=== PATIENT | female | born 1960 | race Hispanic/Latino ===

== ENCOUNTER → 2016-06-21 | Outpatient (CLI) | payer OTHER ==
[~2016-06-21] MED LIST: CIPR500T3 PO; CYMB60CA3 PO; E-Z PAQUE 60% w/v SUSP 355ML BOTTLE As Ordered ONE; E-Z-GAS II EFFERVESCENT PACKET (SODIUM BICARB./CITRIC ACID/SIMETHICONE) As Ordered ONE; E-Z-HD 98% w/w 340GM SUSP BTL As Ordered ONE; ESTR125TA PO; GABA-283 PO; IBUP60TA PO; KEFL500C7 PO; LORA-376 PO; MOTR200T44 PO; NEUR300C PO; OMEP10CASR PO; PERC5TAB6 PO; PHEN200T14 PO; PROA1AER INH; TIZA4CAP3 PO; TOPA50TA7 PO; TRAM50TA2 PO; ZONI50CA3 PO
--- NOTE | 2016-06-21 17:05 | REP ---
UPPER GI, AIR CONTRAST AND SMALL BOWEL FOLLOW THROUGH: The procedure was performed under the direct supervision of Dr. Hill. The images were reviewed with Dr. Hill. The hazmat technician film shows no organomegaly or pathological masses. The intestinal gas pattern is nonspecific. There are surgical clips noted in the right upper quadrant. Liquid barium and gas-producing granules were given in the erect position as well as liquid barium in the prone oblique positions in order to perform a double contrast upper GI examination. The oral and pharyngeal stages of deglutition are unremarkable. Esophageal transport is prompt and efficient and there is no esophagitis, stricture, mucosal ring or hiatal hernia. There is mild gastroesophageal reflux demonstrated to below the level of the darrell. In the outer margin of the posterior antrum, superior aspect there is a shallow outpouching/defect with irregular folds and contour. Cannot exclude an acute versus old ulcer. The remainder of the stomach is unremarkable. The duodenal braswell are normally outlined. The mucosal folds are smooth and regular. There is no duodenitis, pancreatitis, peptic ulcer disease or neoplasm. The visualized portion of the proximal small bowel appears normal in course and caliber. The barium column was followed through the small bowel to the level of the terminal ileum. Small bowel transit time is approximately 15 minutes. During fluoroscopy, gentle palpation shows all loops are freely movable and pliable. There are no fixed or angulated loops. The small bowel mucosal pattern is normal in course and caliber. There is no transition to suggest a partial small bowel obstruction. Spot filming of the terminal ileum shows it to be unremarkable. IMPRESSION: 1. There is mild gastroesophageal reflux demonstrated to below the level of the darrell. 2. In the outer margin of the posterior antrum, superior aspect there is a shallow outpouching/defect with irregular folds and contour. Cannot exclude acute versus old ulcer. 2 minutes and 33 seconds of fluoroscopy time was utilized for this procedure. Reviewed by ANA Ramachandran 06/22/2016 09:34 AEdited and Signed by Javi Hill MD 06/22/2016 04:39 P
== END ==
LOC: M RAD 08:53
PROVIDERS: ATTEND Surgery
DX: K21.9 Gastro-esophageal reflux disease without esophagitis (principal); K58.0 Irritable bowel syndrome with diarrhea

== ENCOUNTER → 2016-06-28 | Outpatient (CLI) | payer OTHER ==
[~2016-06-28] VITALS: Ht 154.9 cm; Wt 93.9 kg
[~2016-06-28] MED LIST changes: -E-Z PAQUE 60% w/v SUSP 355ML BOTTLE As Ordered ONE; -E-Z-GAS II EFFERVESCENT PACKET (SODIUM BICARB./CITRIC ACID/SIMETHICONE) As Ordered ONE; -E-Z-HD 98% w/w 340GM SUSP BTL As Ordered ONE; +LIDOCAINE 2% INJ 100 MG/5 ML SDV (FOR ANES.) As Ordered ONE; +NS 1,000 ML IV SCH; +PROPOFOL 200 MG/20 ML VIAL As Ordered ONE
--- NOTE | 2016-06-28 11:38 | ROOR ---
Patient Name: Blanca Steele Procedure Date: 06/28/2016 11:02 AM Date of : 1960 Age: 55 Room: [facility] Gender: Female Note Status: Finalized Procedure: Upper GI endoscopy Indications: Epigastric abdominal pain, Nausea with vomiting Providers: Barrera Martin Jr, MD Referring MD: Azul Will DO Requesting Provider: Medicines: Propofol per Anesthesia Complications: No immediate complications. Procedure: Pre-Anesthesia Assessment: - Prior to the procedure, a History and Physical was performed, and patient medications and allergies were reviewed. The patient is competent. The risks and benefits of the procedure and the sedation options and risks were discussed with the patient. All questions were answered and informed consent was obtained. Patient identification and proposed procedure were verified by the physician and the nurse in the pre-procedure area and in the procedure room. Mental Status Examination: alert and oriented. Airway Examination: normal oropharyngeal airway and neck mobility. Respiratory Examination: clear to auscultation. CV Examination: normal. ASA Grade Assessment: II - A patient with mild systemic disease. After reviewing the risks and benefits, the patient was deemed in satisfactory condition to undergo the procedure. The anesthesia plan was to use moderate sedation / analgesia (conscious sedation). Immediately prior to administration of medications, the patient was re-assessed for adequacy to receive sedatives. The heart rate, respiratory rate, oxygen saturations, blood pressure, adequacy of pulmonary ventilation, and response to care were monitored throughout the procedure. The physical status of the patient was re-assessed after the procedure. The Endoscope was introduced through the mouth, and advanced to the second part of duodenum. The upper GI endoscopy was accomplished without difficulty. The patient tolerated the procedure well. Findings: The upper third of the esophagus, middle third of the esophagus and lower third of the esophagus were normal. A small hiatal hernia was present. Diffuse moderate inflammation characterized by congestion (edema), erythema, friability and granularity was found in the gastric body, in the gastric antrum, in the prepyloric region of the stomach and at the pylorus. Biopsies were taken with a cold forceps for histology. The duodenal bulb, first portion of the duodenum and second portion of the duodenum were normal. Impression: - Normal upper third of esophagus, middle third of esophagus and lower third of esophagus. - Small hiatal hernia. - Bile gastritis. Biopsied. - Normal duodenal bulb, first portion of the duodenum and second portion of the duodenum. Recommendation: - Discharge patient to home (ambulatory). - Return to my office in 2 weeks. Barrera Martin MD Barrera Martin Jr, MD 06/28/2016 11:38:27 AM This report has been signed electronically. Number of Addenda: 0 Note Initiated On: 06/28/2016 11:02 AM Estimated Blood Loss: Estimated blood loss: none.
[2016-06-28 11:56] VITALS: BP 130/81
== END | disposition home or self-care (01) ==
LOC: M OPP 10:12
PROVIDERS: ATTEND Surgery
DX: K29.60 Other gastritis without bleeding (principal); R10.13 Epigastric pain; R11.2 Nausea with vomiting, unspecified; R12 Heartburn; K44.9 Diaphragmatic hernia without obstruction or gangrene; K58.9 Irritable bowel syndrome, unspecified; M19.90 Unspecified osteoarthritis, unspecified site; F41.9 Anxiety disorder, unspecified; F32.9 Major depressive disorder, single episode, unspecified; G43.909 Migraine, unspecified, not intractable, without status migrainosus; G62.9 Polyneuropathy, unspecified; G47.30 Sleep apnea, unspecified; R06.83 Snoring; M51.9 Unspecified thoracic, thoracolumbar and lumbosacral intervertebral disc disorder; M54.30 Sciatica, unspecified side; M48.00 Spinal stenosis, site unspecified; Z80.3 Family history of malignant neoplasm of breast; Z80.7 Family history of other malignant neoplasms of lymphoid, hematopoietic and related tissues; Z80.8 Family history of malignant neoplasm of other organs or systems; Z80.0 Family history of malignant neoplasm of digestive organs; Z87.891 Personal history of nicotine dependence; Z79.890 Hormone replacement therapy; Z79.899 Other long term (current) drug therapy

== ENCOUNTER → 2016-11-14 | Outpatient (REF) | payer OTHER ==
[~2016-11-14] MED LIST changes: +AUGM875T28 PO; +BENA25CA4 PO; +ESTR625TA PO; +ESTR62CR PV; +KEFL500C17 PO; -KEFL500C7 PO; +LIDO1PAD TOP; -LIDOCAINE 2% INJ 100 MG/5 ML SDV (FOR ANES.) As Ordered ONE; -LORA-376 PO; +LORA0.5T11 PO; -NS 1,000 ML IV SCH; +ONDA4TAB5 PO; +PANT40TA2 PO; +PERC5TAB12 PO; -PERC5TAB6 PO; +PHEN-501 PO; -PHEN200T14 PO; -PROA1AER INH; +PROAAER10 INH; -PROPOFOL 200 MG/20 ML VIAL As Ordered ONE; +REGL10TA6 PO; +SUCR1TA PO; -TOPA50TA7 PO; +TOPA50TA8 PO; +UNIS25TA2 PO; +VITA1CAP40; +[UNRECOGNIZED DRUG - CODE] PO
== END ==
LOC: M LAB REF 16:45
PROVIDERS: ATTEND Obstetrics & Gynecology
DX: R39.89 Other symptoms and signs involving the genitourinary system (principal)

== ENCOUNTER → 2016-12-12 | Outpatient (CLI) | payer OTHER ==
[2016-12-12 16:12] LABS: BASO % 0.3 % (0.0-1.0); EOS # 0.1 K/mm3 (0.0-0.50); EOS % 1.6 % (0.0-3.0); LARGE UNSTAINED CELL # 0.1 K/mm3 (0.0-0.4); LARGE UNSTAINED CELL % 1.2 % (0.0-4.0); LYMPH # 3.1 K/mm3 (1.5-4.5); LYMPH % 36.2 % (24.0-44.0); MEAN CORPUSCULAR HEMOGLOBIN 29.5 pg (27.0-33.0); MEAN CORPUSCULAR VOLUME 84.1 fl (80.0-96.0); MONO # 0.3 K/mm3 (0.0-0.8); NEUTROPHILS # 4.7 K/mm3 (1.8-7.7); NEUTROPHILS % 56.6 % (36.0-66.0); PLATELET COUNT, AUTOMATED 270 k/mm3 (150-450); RED CELL DISTRIBUTION WIDTH 12.8 % (11.5-14.5); WHITE BLOOD COUNT 8.3 K/mm3 (4.0-10.0)
[2016-12-12 16:39] LABS: ALBUMIN 4.3 GM/DL (3.2-5.2); ALKALINE PHOSPHATASE 114 U/L (45-117); ALT/SGPT 31 U/L (12-78); ANION GAP 7 MEQ/L (8-16); AST/SGOT 29 U/L (15-37); BILIRUBIN,TOTAL 0.4 MG/DL (0.2-1.0); BLOOD UREA NITROGEN 9 MG/DL (7-18); CALCIUM LEVEL 9.9 MG/DL (8.5-10.1); CARBON DIOXIDE LEVEL 24 MEQ/L (21-32); CHLORIDE LEVEL 111 MEQ/L (98-107); CREATININE FOR GFR 0.79 MG/DL (0.55-1.02); GLOMERULAR FILTRATION RATE > 60.0 (>51); GLUCOSE, FASTING 73 MG/DL (70-105); POTASSIUM SERUM 4.2 MEQ/L (3.5-5.1); SODIUM LEVEL 142 MEQ/L (136-145); TOTAL PROTEIN 8.2 GM/DL (6.4-8.2)
== END ==
LOC: M LAB 14:55
PROVIDERS: ATTEND Internal Medicine Gastroenterology
DX: R19.7 Diarrhea, unspecified (principal)

== ENCOUNTER → 2017-01-02 | Outpatient (REF) | payer OTHER | LOC: M LAB REF 06:30 | PROVIDERS: ATTEND Internal Medicine Gastroenterology | DX: R19.7 Diarrhea, unspecified (principal) ==

== ENCOUNTER 2017-01-09 14:21 | Emergency (ER) | payer OTHER ==
[~2017-01-09] VITALS: Ht 154.9 cm; Wt 96.8 kg
[~2017-01-09 14:21] MED LIST changes: -AUGM875T28 PO; -BENA25CA4 PO; -ESTR625TA PO; -ESTR62CR PV; -LIDO1PAD TOP; -ONDA4TAB5 PO; -PANT40TA2 PO; -REGL10TA6 PO; -SUCR1TA PO; -UNIS25TA2 PO; -VITA1CAP40; -[UNRECOGNIZED DRUG - CODE] PO
[2017-01-09] MEDS ORDERED: VITA1CAP40 (14:37)
[2017-01-09] MEDS ORDERED: [UNRECOGNIZED DRUG - CODE] PO (14:37)
[2017-01-09] MEDS ORDERED: SUCR1TA PO (14:37)
[2017-01-09] MEDS ORDERED: GASTROGRAFIN SOLUTION 30ML (Q9963) As Ordered ONE (15:19)
[2017-01-09] MEDS ORDERED: METOCLOPRAMIDE INJ 10MG/2ML VIAL (J2765) IV ONE (16:00)
[2017-01-09] MEDS ORDERED: KETOROLAC 30 MG/ML VIAL (J1885) IV ONE (16:00)
[2017-01-09] MEDS ORDERED: GASTROGRAFIN SOLUTION 30ML PO ONE (16:20)
[2017-01-09 16:21] LABS: BASO % 0.4 % (0.0-1.0); EOS # 0.1 K/mm3 (0.0-0.50); EOS % 0.9 % (0.0-3.0); LARGE UNSTAINED CELL # 0.1 K/mm3 (0.0-0.4); LARGE UNSTAINED CELL % 0.9 % (0.0-4.0); LYMPH # 2.1 K/mm3 (1.5-4.5); LYMPH % 22.3 % (24.0-44.0); MEAN CORPUSCULAR HEMOGLOBIN 29.2 pg (27.0-33.0); MEAN CORPUSCULAR HGB CONC 34.2 g/dl (32.0-36.5); MEAN CORPUSCULAR VOLUME 85.2 fl (80.0-96.0); MONO # 0.3 K/mm3 (0.0-0.8); MONO % 3.4 % (0.0-5.0); NEUTROPHILS # 6.4 K/mm3 (1.8-7.7); PLATELET COUNT, AUTOMATED 278 k/mm3 (150-450); RED CELL DISTRIBUTION WIDTH 13.2 % (11.5-14.5); WHITE BLOOD COUNT 8.9 K/mm3 (4.0-10.0)
[2017-01-09 16:32] LABS: ALBUMIN 4.1 GM/DL (3.2-5.2); ALBUMIN/GLOBULIN RATIO 1.08 (1.00-1.93); ALKALINE PHOSPHATASE 131 U/L (45-117); ALT/SGPT 28 U/L (12-78); AMYLASE 57 U/L (25-115); ANION GAP 10 MEQ/L (8-16); AST/SGOT 24 U/L (15-37); BILIRUBIN,DIRECT 0.2 MG/DL (0.0-0.2); BILIRUBIN,TOTAL 0.4 MG/DL (0.2-1.0); BLOOD UREA NITROGEN 8 MG/DL (7-18); CALCIUM LEVEL 9.9 MG/DL (8.5-10.1); CARBON DIOXIDE LEVEL 23 MEQ/L (21-32); CHLORIDE LEVEL 111 MEQ/L (98-107); CREATININE FOR GFR 0.69 MG/DL (0.55-1.02); GLOMERULAR FILTRATION RATE > 60.0 (>51); GLUCOSE, FASTING 78 MG/DL (70-105); POTASSIUM SERUM 3.8 MEQ/L (3.5-5.1); SODIUM LEVEL 144 MEQ/L (136-145); TOTAL PROTEIN 7.9 GM/DL (6.4-8.2)
[2017-01-09] MEDS ORDERED: GASTROGRAFIN SOLUTION 30ML (Q9963) PO ONE (16:50)
--- NOTE | 2017-01-09 18:41 | REP ---
CT of the abdomen pelvis without IV contrast, but with bowel contrast: Comparison is 05/05/2015. The visualized lung mesa are unremarkable. There is a 1.2 use centimeter cyst in the left lobe of the liver posteriorly, unchanged. The unenhanced hepatic parenchyma is otherwise homogeneous and unremarkable. There are surgical clips in the gallbladder fossa. Pancreas and spleen are normal size and unremarkable. The adrenals are unremarkable. The unenhanced kidneys are unremarkable. The abdominal aorta is unremarkable. There is no bowel distension. No ascites. Pelvis: The appendix is surgically absent. There is a hysterectomy. There is no diverticulosis. The bladder is incompletely distended but otherwise unremarkable. There is wall thickening of the rectosigmoid colon, nonspecific, artifact from non distension versus colitis. Impression: Cholecystectomy, appendectomy and hysterectomy. No ascites, adenopathy or mass. Nonspecific wall thickening of the rectosigmoid colon, artifact from under distension versus colitis. Stable hepatic cyst. Otherwise, negative CT of the abdomen and pelvis. Signed by Rome Velasquez MD 01/09/2017 06:33 P
[2017-01-09] MEDS ORDERED: AUGM875T28 PO (18:42)
[2017-01-09] MEDS ORDERED: REGL10TA6 PO (18:42)
[2017-01-09] MEDS ORDERED: PERCOCET 5MG/325MG TAB PO ONE (18:45)
[2017-01-09 18:53] VITALS: BP 147/92
--- NOTE | 2017-01-10 09:51 | ED PDOC ---
Post-Departure Follow-Up radiology report faxed to Albina Greene MD Jan 10, 2017 09:51
[2017-03-05] MEDS ORDERED: UNIS25TA2 PO (14:51)
[2017-03-05] MEDS ORDERED: LIDO1PAD TOP (14:51)
[2017-03-05] MEDS ORDERED: PANT40TA2 PO (14:51)
[2017-03-05] MEDS ORDERED: ONDA4TAB5 PO (14:51)
[2017-03-05] MEDS ORDERED: BENA25CA4 PO (14:51)
[2017-03-05] MEDS ORDERED: ESTR625TA PO (14:51)
[2017-03-05] MEDS ORDERED: ESTR62CR PV (14:51)
== END 2017-01-09 19:12 | disposition home or self-care (01) ==
LOC: M ED 14:21
DX: K52.9 Noninfective gastroenteritis and colitis, unspecified (principal); R10.12 Left upper quadrant pain; R10.32 Left lower quadrant pain; J45.909 Unspecified asthma, uncomplicated; F41.9 Anxiety disorder, unspecified; F32.9 Major depressive disorder, single episode, unspecified; G43.909 Migraine, unspecified, not intractable, without status migrainosus; Z79.899 Other long term (current) drug therapy
CPT/HCPCS: 74176; 80048; 80076; 82150; 83690; 85025; 86140; 96374; 96375; 99283; J1885; J2765; Q9963

== ENCOUNTER 2017-03-12 07:57 | Day surgery (SDC) | payer OTHER ==
[~2017-03-12] VITALS: Ht 154.9 cm; Wt 90.6 kg
[~2017-03-12 07:57] MED LIST changes: +AUGM875T28 PO; +BENA25CA4 PO; +ESTR625TA PO; +ESTR62CR PV; +LIDO1PAD TOP; +ONDA4TAB5 PO; +PANT40TA2 PO; +REGL10TA6 PO; +SUCR1TA PO; +UNIS25TA2 PO; +VITA1CAP40; +[UNRECOGNIZED DRUG - CODE] PO
[2017-03-12] MEDS ORDERED: NS 1,000 ML IV ONE (09:00)
[2017-03-12] MEDS ORDERED: LIDOCAINE 2% INJ 100 MG/5 ML SDV (FOR ANES.) As Ordered ONE (09:44)
[2017-03-12] MEDS ORDERED: PROPOFOL 200 MG/20 ML VIAL As Ordered ONE (09:44)
--- NOTE | 2017-03-12 10:34 | ROOR ---
Patient Name: Blanca Steele Procedure Date: 03/12/2017 10:02 AM Date of : 1960 Age: 56 Room: [facility] Gender: Female Note Status: Finalized Procedure: Colonoscopy Indications: Chronic diarrhea, Clinically significant diarrhea of unexplained origin Providers: Rambo Alcazar MD Referring MD: Azul Will DO Requesting Provider: Medicines: Monitored Anesthesia Care Complications: No immediate complications. Procedure: Pre-Anesthesia Assessment: - Prior to the procedure, a History and Physical was performed, and patient medications and allergies were reviewed. The patient is competent. The risks and benefits of the procedure and the sedation options and risks were discussed with the patient. All questions were answered and informed consent was obtained. Patient identification and proposed procedure were verified by the physician, the nurse and the director of residential services in the procedure room. Mental Status Examination: alert and oriented. Airway Examination: normal oropharyngeal airway and neck mobility. Respiratory Examination: clear to auscultation. CV Examination: normal. Prophylactic Antibiotics: The patient does not require prophylactic antibiotics. Prior Anticoagulants: The patient has taken no previous anticoagulant or antiplatelet agents. ASA Grade Assessment: III - A patient with severe systemic disease. After reviewing the risks and benefits, the patient was deemed in satisfactory condition to undergo the procedure. The anesthesia plan was to use monitored anesthesia care (MAC). Immediately prior to administration of medications, the patient was re-assessed for adequacy to receive sedatives. The heart rate, respiratory rate, oxygen saturations, blood pressure, adequacy of pulmonary ventilation, and response to care were monitored throughout the procedure. The physical status of the patient was re-assessed after the procedure. The Colonoscope was introduced through the anus and advanced to the terminal ileum, with identification of the appendiceal orifice and IC valve. The colonoscopy was performed without difficulty. The patient tolerated the procedure well. The quality of the bowel preparation was good. The terminal ileum, ileocecal valve, appendiceal orifice, and rectum were photographed. Scope insertion time was 3 minutes. Scope withdrawal time was 8 minutes. The total duration of the procedure was 11 minutes. Findings: Hemorrhoids were found on perianal exam. The terminal ileum appeared normal. Biopsies were taken with a cold forceps for histology. Verification of patient identification for the specimen was done by the physician and nurse using the patient's name, date and medical record number. Estimated blood loss was minimal. Normal mucosa was found from rectum to cecum. Biopsies for histology were taken with a cold forceps from the right colon, left colon, transverse colon and rectum for evaluation of microscopic colitis. External hemorrhoids were found during retroflexion. The hemorrhoids were large. Impression: - Hemorrhoids found on perianal exam. - The examined portion of the ileum was normal. Biopsied. - Normal mucosa from rectum to cecum. Biopsied. - External hemorrhoids. Recommendation: - Patient has a contact number available for emergencies. The signs and symptoms of potential delayed complications were discussed with the patient. Return to normal activities tomorrow. Written discharge instructions were provided to the patient. - High fiber diet. - Continue present medications. - Preparation H ointment: Apply externally daily for 7 days. - Await pathology results. - Repeat colonoscopy in 10 years for screening purposes. - Return to GI clinic as previously scheduled on 03/27/2017 at 3:15 PM. - Return to primary care physician. Rambo Alcazar MD Rambo Alcazar MD 03/12/2017 10:33:41 AM This report has been signed electronically. Number of Addenda: 0 Note Initiated On: 03/12/2017 10:02 AM Estimated Blood Loss: Estimated blood loss was minimal.
[2017-03-12 11:00] VITALS: BP 119/85
== END 2017-03-12 11:04 | disposition home or self-care (01) ==
LOC: M OPP 07:57
PROVIDERS: ATTEND Internal Medicine Gastroenterology
DX: R19.7 Diarrhea, unspecified (principal); K64.4 Residual hemorrhoidal skin tags; K58.9 Irritable bowel syndrome, unspecified; I10 Essential (primary) hypertension; F41.9 Anxiety disorder, unspecified; M19.90 Unspecified osteoarthritis, unspecified site; M54.30 Sciatica, unspecified side; M48.00 Spinal stenosis, site unspecified; M51.9 Unspecified thoracic, thoracolumbar and lumbosacral intervertebral disc disorder; L08.9 Local infection of the skin and subcutaneous tissue, unspecified; F32.9 Major depressive disorder, single episode, unspecified; Z87.828 Personal history of other (healed) physical injury and trauma; G43.909 Migraine, unspecified, not intractable, without status migrainosus; G62.9 Polyneuropathy, unspecified; J45.909 Unspecified asthma, uncomplicated; G47.8 Other sleep disorders; G47.30 Sleep apnea, unspecified; R06.83 Snoring; Z80.0 Family history of malignant neoplasm of digestive organs; Z80.3 Family history of malignant neoplasm of breast; Z79.899 Other long term (current) drug therapy

== ENCOUNTER → 2017-08-19 | Outpatient (CLI) | payer OTHER | LOC: M RAD 15:37 | DX: M51.17 Intervertebral disc disorders with radiculopathy, lumbosacral region (principal); M51.16 Intervertebral disc disorders with radiculopathy, lumbar region; M48.061 Spinal stenosis, lumbar region without neurogenic claudication ==

== ENCOUNTER → 2017-12-06 | Outpatient (CLI) | payer OTHER ==
[2017-12-06 13:24] LABS: HEMOGLOBIN 13.9 g/dl (12.0-15.5)
[2017-12-06 13:55] LABS: ANION GAP 6 MEQ/L (8-16); BLOOD UREA NITROGEN 12 MG/DL (7-18); CALCIUM LEVEL 9.8 MG/DL (8.5-10.1); CARBON DIOXIDE LEVEL 28 MEQ/L (21-32); CHLORIDE LEVEL 108 MEQ/L (98-107); CREATININE FOR GFR 0.78 MG/DL (0.55-1.30); GLOMERULAR FILTRATION RATE > 60.0 (>51); GLUCOSE, FASTING 72 MG/DL (70-100); POTASSIUM SERUM 4.2 MEQ/L (3.5-5.1); SODIUM LEVEL 142 MEQ/L (136-145)
== END ==
LOC: M LAB 12:36
DX: Z01.818 Encounter for other preprocedural examination (principal); M47.896 Other spondylosis, lumbar region; J45.909 Unspecified asthma, uncomplicated
CPT/HCPCS: 71046

== ENCOUNTER 2018-03-31 06:18 | Inpatient (IN) | payer OTHER ==
[~2018-03-31 06:18] MED LIST changes: -AUGM875T28 PO; -BENA25CA4 PO; -CIPR500T3 PO; -CYMB60CA3 PO; -ESTR125TA PO; -ESTR625TA PO; -ESTR62CR PV; -GABA-283 PO; -IBUP60TA PO; -KEFL500C17 PO; -LIDO1PAD TOP; +LIDOCAINE 1% MDV 20ML VIAL SQ; -LORA0.5T11 PO; -MOTR200T44 PO; -NEUR300C PO; -OMEP10CASR PO; -ONDA4TAB5 PO; -PANT40TA2 PO; -PERC5TAB12 PO; -PHEN-501 PO; -PROAAER10 INH; -REGL10TA6 PO; -SUCR1TA PO; -TIZA4CAP3 PO; -TOPA50TA8 PO; -TRAM50TA2 PO; -UNIS25TA2 PO; -VITA1CAP40; -ZONI50CA3 PO; -[UNRECOGNIZED DRUG - CODE] PO
[2018-03-31] MEDS ORDERED: LR 1,000 ML IV (06:30)
[2018-03-31] MEDS: GABAPENTIN 300 MG CAP PO (06:45)
[2018-03-31] MEDS: CelecoXIB (CeleBREX) 100 MG CAP PO (07:09)
[2018-03-31] MEDS: PERCOCET 5MG/325MG TAB PO ×3 (07:10→20:53)
[2018-03-31] MEDS ORDERED: LIDOCAINE 2% INJ 100 MG/5 ML SDV (FOR ANES.) As Ordered (07:20)
[2018-03-31] MEDS ORDERED: PROPOFOL 200 MG/20 ML VIAL As Ordered (07:20)
[2018-03-31] MEDS ORDERED: ROCURONIUM BROMIDE 50 MG/5 ML VIAL As Ordered ×2 (07:20→09:02)
[2018-03-31] MEDS ORDERED: fentaNYL 250 MCG/5 ML INJECTION (J3010) As Ordered (07:21)
[2018-03-31] MEDS ORDERED: MIDAZOLAM INJ 2 MG/2 ML VIAL (J2250) As Ordered (07:21)
[2018-03-31] MEDS: ceFAZolin SOD 1 GM in D5W MINI-BAG PLUS 50 ML IV (07:34)
[2018-03-31] MEDS: BUPIVACAINE/EPIN 0.25% 30 ML VIAL As Ordered (08:16)
[2018-03-31] MEDS ORDERED: ePHEDrine SULFATE 25 MG/5 ML(5MG/ML) SYRINGE As Ordered (08:22)
[2018-03-31] MEDS ORDERED: KETOROLAC 60 MG/2 ML VIAL (J1885) As Ordered (10:01)
[2018-03-31] MEDS ORDERED: GLYCOPYRROLATE INJ 0.2 MG/ML 2 ML VIAL As Ordered (10:01)
[2018-03-31] MEDS ORDERED: NEOSTIGMINE 10 MG/10 ML VIAL (J2710) As Ordered (10:01)
[2018-03-31] MEDS ORDERED: METOCLOPRAMIDE INJ 10MG/2ML VIAL (J2765) As Ordered (10:01)
[2018-03-31] MEDS ORDERED: dexameTHASONE 4 MG/ML 1ML VIAL (J1100) As Ordered ×2 (10:01)
[2018-03-31] MEDS ORDERED: ONDANSETRON 4MG/2ML VIAL (J2405) As Ordered (10:01)
[2018-03-31] MEDS ORDERED: HYDROmorphone HCL 2 MG/ML 1ML VIAL (J1170) As Ordered (10:27)
[2018-03-31] MEDS: THROMBIN SOLN 20,000 UNITS KIT As Ordered (10:58)
[2018-03-31] MEDS: TRANEXAMIC ACID 100 MG/ML 10ML VIAL As Ordered (10:58)
[2018-03-31] MEDS: EPINEPHrine INJ 1 MG/ML 1ML AMP As Ordered (10:59)
[2018-03-31] MEDS: VANCOMYCIN HCL 500 MG/10 ML VIAL (J3370) As Ordered (11:00)
[2018-03-31] MEDS: BUPIVACAINE HCL 0.5% 30 ML VIAL As Ordered (11:00)
[2018-03-31] MEDS: BUPIVACAINE LIPOSOME/PF 1.3% 20ML VIAL (13.3MG/ML)(EXPAREL)(C9290 PER1MG) As Ordered (11:00)
[2018-03-31] MEDS: BACITRACIN PWD 50,000 UNITS VIAL As Ordered (11:01)
[2018-03-31] MEDS ORDERED: HYDROMORPHONE HCL 0.5 MG/ 0.5 ML SYRINGE (J1170 PER 1) As Ordered ×2 (11:49→11:59)
[2018-03-31] MEDS: HYDROMORPHONE HCL 0.5 MG/ 0.5 ML SYRINGE (J1170 PER 1) IV ×7 (11:50→22:47)
[2018-03-31] MEDS ORDERED: PROMETHAZINE INJ 25 MG/ML VIAL (J2550) IV (12:15)
[2018-03-31] MEDS ORDERED: fentaNYL 100 MCG/2 ML INJECTION (J3010) IV (12:15)
[2018-03-31] MEDS ORDERED: ONDANSETRON 4 MG TAB (S0181) PO (12:15)
[2018-03-31] MEDS: LR 1,000 ML IV (12:15)
[2018-03-31] MEDS ORDERED: NORTRIPTYLINE 10 MG CAP PO (12:15)
[2018-03-31] MEDS ORDERED: PERCOCET 5MG/325MG TAB PO ×2 (12:15→12:30)
[2018-03-31] MEDS ORDERED: ONDANSETRON 4MG/2ML VIAL (J2405) IV (12:15)
[2018-03-31] MEDS ORDERED: ACETAMINOPHEN TAB 650MG DOSE (2X325MG) PO (12:30)
[2018-03-31] MEDS: GABAPENTIN 400 MG CAP PO ×2 (16:22→20:53)
[2018-03-31] MEDS: tiZANidine 4 MG TAB PO (20:53)
[2018-03-31] MEDS: hydrOXYzine 10 MG TAB PO (21:30)
[2018-04-01] MEDS: PERCOCET 5MG/325MG TAB PO ×5 (01:01→21:24)
[2018-04-01] MEDS: HYDROMORPHONE HCL 0.5 MG/ 0.5 ML SYRINGE (J1170 PER 1) IV ×2 (07:43→12:45)
[2018-04-01] MEDS: GABAPENTIN 400 MG CAP PO ×4 (08:41→20:06)
[2018-04-01] MEDS: ASPIRIN ENTERIC 325 MG TAB PO (08:41)
[2018-04-01] MEDS: PANTOPRAZOLE 40MG TAB (PROTONIX) PO (08:42)
[2018-04-01] MEDS: hydrOXYzine 10 MG TAB PO (10:32)
[2018-04-01] MEDS: tiZANidine 4 MG TAB PO ×2 (10:32→17:43)
[2018-04-01] MEDS: MORPHINE 15 MG SA TAB PO (13:25)
[2018-04-02] MEDS: PERCOCET 5MG/325MG TAB PO ×3 (03:15→12:35)
[2018-04-02] MEDS: diphenhydrAMINE 25 MG CAP PO (06:22)
[2018-04-02] MEDS: ASPIRIN ENTERIC 325 MG TAB PO (08:23)
[2018-04-02] MEDS: PANTOPRAZOLE 40MG TAB (PROTONIX) PO (08:24)
[2018-04-02] MEDS: GABAPENTIN 400 MG CAP PO ×2 (08:24→12:34)
== END 2018-04-02 12:50 | disposition home or self-care (01) | DRG 455 ==
LOC: M OR 06:18 → M MS5PR 12:55
PROC: 0SG0071 Fusion of Lumbar Vertebral Joint with Autologous Tissue Substitute, Posterior Approach, Posterior Column, Open Approach (ICD-10-PCS; principal; 2018-03-31 07:30)
PROC: 0SG00AJ Fusion of Lumbar Vertebral Joint with Interbody Fusion Device, Posterior Approach, Anterior Column, Open Approach (ICD-10-PCS; 2018-03-31 07:30)
PROC: 0QB30ZZ Excision of Left Pelvic Bone, Open Approach (ICD-10-PCS; 2018-03-31 07:30)
DX: M43.06 Spondylolysis, lumbar region (principal); Z79.899 Other long term (current) drug therapy; F41.9 Anxiety disorder, unspecified; G25.81 Restless legs syndrome; G43.909 Migraine, unspecified, not intractable, without status migrainosus; J45.909 Unspecified asthma, uncomplicated; Z87.891 Personal history of nicotine dependence; K21.9 Gastro-esophageal reflux disease without esophagitis; F31.9 Bipolar disorder, unspecified

== ENCOUNTER → 2019-08-25 | Outpatient (CLI) | payer OTHER ==
[~2019-08-25] MED LIST changes: +AUGM875T28 PO; +BENA25CA4 PO; +CIPR500T3 PO; +CYMB60CA3 PO; +ESTR125TA PO; +ESTR625TA PO; +ESTR62CR PV; +GABA-845 PO; +HYDR-3363 PO; +IBUP600T42 PO; +IMOD2TAB16 PO; +KEFL500C17 PO; +LIDO1PAD TOP; -LIDOCAINE 1% MDV 20ML VIAL SQ; +LORA0.5T5 PO; +MELA10CA PO; +MOTR200T44 PO; +NEUR300C PO; +OMEP-357 PO; +OMEP10CASR PO; +ONDA-83 PO; +PANT40TA3 PO; +PERC5TAB12 PO; +PHEN-501 PO; +PROAAER10 INH; +PROHANCE 279.3MG/ML 15ML VIAL As Ordered ONE; +REGL10TA6 PO; +SUCR1TA PO; +SUMA25TA3 PO; +TIZA4CAP PO; +TOPA50TA8 PO; +TRAM50TA2 PO; +UNIS25TA3 PO; +VITA50005; +ZONI50CA11 PO; +medical marijuana
--- NOTE | 2019-08-25 16:02 | REP ---
MRI LUMBAR SPINE WITHOUT AND WITH IV GADOLINIUM: HISTORY: Status post L4-5 decompression and fusion. Rule out stenosis. Status of arthrodesis. The gadolinium enhancement dose is 16 mL of intravenous ProHance. TECHNIQUE: Sagittal and axial T1- and T2-weighted scans are acquired in the usual fashion with and without fat saturation. Sequences include spin echo, turbo spin-echo, and STIR imaging sequences. Comparison MRI study is from January 29, 2018. MRI FINDINGS: There is a left laminectomy defect visible at the L4-5 disc level. There is postoperative enlargement of the thecal sac at this level particularly along its dorsal and left lateral aspect. There is no evidence of L4-5 disc herniation. There is some residual facet and ligamentum flavum hypertrophy particularly on the right. Degenerative disc disease is again noted. There is discogenic spurring involving the right neural foramen which is unchanged. The nerve root is surrounded by fat and not displaced. At L5-S1, there is mild facet hypertrophy bilaterally. No focal disc protrusion is seen. At L3-4, there is facet and ligamentum flavum hypertrophy bilaterally. Mild diffuse disc bulging is seen. There is a left foraminal disc bulge at the L3-4 unchanged. There is a hemangioma in the L3 vertebral body which is unchanged. At L2-3, there is no evidence of focal disc protrusion or canal stenosis. The L1-2 level shows minimal disc bulging unchanged. No extra vertebral abnormality is observed. Normal caliber aorta. Postcontrast images show postoperative soft tissue enhancement in the dorsal extra spinal soft tissues. No other abnormal contrast enhancement. IMPRESSION: Status post L4-5 laminectomy on the left. Improved thecal sac caliber. No evidence of new focal disc protrusion. There is mild right foraminal encroachment from discogenic spurring at L5-S1 and a left foraminal disc bulge is seen at L3-4. Electronically Signed by Alo Ding MD 08/25/2019 05:10 P
== END ==
LOC: M RAD 12:53
PROVIDERS: ATTEND Physician Assistant
DX: Z98.1 Arthrodesis status (principal)
CPT/HCPCS: 72158; A9576

== ENCOUNTER → 2021-01-20 | Outpatient (CLI) | payer OTHER ==
[~2021-01-20] MED LIST changes: +GABA-283 PO; -GABA-845 PO; +ISOVUE-300 61% 50ML VIAL As Ordered ONE; +LIDOCAINE 1% MDV 20ML VIAL As Ordered ONE; +PANT40TA29 PO; -PANT40TA3 PO; -PROHANCE 279.3MG/ML 15ML VIAL As Ordered ONE; +TRIAMCINOLONE ACETONIDE SUSP 40 MG/ML VIAL (J3301) As Ordered ONE
--- NOTE | 2021-01-20 16:15 | REP ---
INDICATION: OA OF LT HIP. COMPARISON: None. TECHNIQUE: The procedure was performed under the direct supervision of Dr. Ding. The benefits and risks including but not limited to pain infection and bleeding and anaphylaxis were explained to the patient and informed consent was obtained. The left femoral neck was localized using fluoroscopic guidance. The skin was prepped and draped in a sterile fashion. 1% lidocaine was used as a local anesthetic. Using fluoroscopic guidance, and last image hold technology, a 22-gauge spinal needle was inserted and advanced to the femoral neck. 0.5 ml of Isovue-300 was injected to verify placement. Six ml of a solution containing 5 ml of 1% Xylocaine and 1 mL of Kenalog 40 mg was injected. The needle was then removed. The patient tolerated the procedure well and there were no immediate complications. Less than 6 seconds of fluoro time was utilized for this procedure. FINDINGS: None IMPRESSION: Fluoro guidance for left hip injection. <Electronically signed by Abraham Valenzuela > 01/20/21 [id number] <Electronically signed by Vitaly Ding > 01/20/21 [id number]
== END ==
LOC: M RADPRO 11:49
PROVIDERS: ATTEND Physician Assistant
DX: M16.12 Unilateral primary osteoarthritis, left hip (principal)
CPT/HCPCS: 20610; 77002; J3301; Q9967

== ENCOUNTER → 2021-03-06 | Outpatient (CLI) | payer OTHER ==
[~2021-03-06] MED LIST changes: -CYMB60CA3 PO; +CYMB60CA4 PO
--- NOTE | 2021-03-06 17:24 | REP ---
INDICATION: OSTEOARTHRITIS. COMPARISON: None. TECHNIQUE: The procedure was performed under the direct supervision of Dr. Mcneil. The benefits and risks including but not limited to pain infection and bleeding and anaphylaxis were explained to the patient and informed consent was obtained. The right femoral neck was localized using fluoroscopic guidance. The skin was prepped and draped in a sterile fashion. 1% lidocaine was used as a local anesthetic. Using fluoroscopic guidance, and last image hold technology, a 22-gauge spinal needle was inserted and advanced to the femoral neck. 0.5 ml of Isovue-300 was injected to verify placement. Six ml of a solution containing 5 ml of 1% Xylocaine and 1 mL of Kenalog 40 mg was injected. The needle was then removed. The patient tolerated the procedure well and there were no immediate complications. Less than 6 seconds of fluoro time was utilized for this procedure. FINDINGS: None IMPRESSION: Fluoro guidance for right hip injection. <Electronically signed by Abraham Valenzuela > 03/06/21 152 <Electronically signed by Rome Mcneil > 03/06/21 [id number]
== END ==
LOC: M RADPRO 11:28
PROVIDERS: ATTEND Physician Assistant
DX: M16.0 Bilateral primary osteoarthritis of hip (principal)
CPT/HCPCS: 20610; 77002; J3301; Q9967

== ENCOUNTER → 2021-05-31 | Outpatient (CLI) | payer OTHER | LOC: M RADPRO 11:01 | PROVIDERS: ATTEND Physician Assistant | DX: M16.12 Unilateral primary osteoarthritis, left hip (principal) | CPT/HCPCS: 20610; 77002; J3301; Q9967 ==

== ENCOUNTER → 2022-04-04 | Outpatient (CLI) | payer OTHER ==
[~2022-04-04] MED LIST changes: +**SFHN** LIDOCAINE 1% MDV 20ML VIAL ONE; +**SFHN** TRIAMCINOLONE ACETONIDE SUSP 40 MG/ML 1ML VIAL ONE; -ISOVUE-300 61% 50ML VIAL As Ordered ONE; +ISOVUE-300 61% 50ML VIAL ONE; -LIDOCAINE 1% MDV 20ML VIAL As Ordered ONE; -TRIAMCINOLONE ACETONIDE SUSP 40 MG/ML VIAL (J3301) As Ordered ONE
== END ==
LOC: M PLAIMG 14:48
PROVIDERS: ATTEND Physician Assistant
DX: M16.12 Unilateral primary osteoarthritis, left hip (principal)

== ENCOUNTER → 2022-08-27 | Outpatient (CLI) | payer OTHER ==
[~2022-08-27] MED LIST changes: -**SFHN** LIDOCAINE 1% MDV 20ML VIAL ONE; -**SFHN** TRIAMCINOLONE ACETONIDE SUSP 40 MG/ML 1ML VIAL ONE; +ISOVUE-300 61% 100ML VIAL ONE; -ISOVUE-300 61% 50ML VIAL ONE; +LIDOCAINE 1% MDV 20ML VIAL ONE; +TRIAMCINOLONE ACETONIDE SUSP 40MG/ML 1ML VIAL ONE
== END ==
LOC: M PLAIMG 15:16
PROVIDERS: ATTEND Physician Assistant
DX: M16.11 Unilateral primary osteoarthritis, right hip (principal)

== ENCOUNTER → 2024-11-09 | Outpatient (REF) | payer OTHER ==
[~2024-11-09] MED LIST changes: -GABA-283 PO; +GABA-284 PO; -ISOVUE-300 61% 100ML VIAL ONE; -LIDOCAINE 1% MDV 20ML VIAL ONE; -TRIAMCINOLONE ACETONIDE SUSP 40MG/ML 1ML VIAL ONE
[2024-11-09 18:05] LABS: TOTAL PROTEIN,RANDOM URINE 19.3 MG/DL (0.0-14.0)
[2024-11-09 18:12] LABS: C REACTIVE PROTEIN QUANTITATIV 1.54 MG/DL (<1.0)
[2024-11-09 18:13] LABS: ALT/SGPT 74 U/L (7.0-40); AST/SGOT 53 U/L (<34); CALCIUM LEVEL 9.3 MG/DL (8.3-10.6); CARBON DIOXIDE LEVEL 30 MMOL/L (20-31); CHLORIDE LEVEL 100 MMOL/L (98-107); COMPLEMENT C4 43.4 MG/DL (12-36); CPK CREATINE PHOSPHOKINASE 25 U/L (34-145); CREATININE FOR GFR 0.76 MG/DL (0.55-1.30); GLOMERULAR FILTRATION RATE 88.5 (>45); MAGNESIUM LEVEL 2.2 MG/DL (1.8-2.4); PHOSPHORUS LEVEL 3.9 MG/DL (2.4-5.1); POTASSIUM SERUM 4.1 MMOL/L (3.5-5.1); SODIUM LEVEL 141 MMOL/L (136-145)
[2024-11-09 18:15] LABS: TOTAL 25(OH) VITAMIN D 36.4 NG/ML (20.0-100.0)
[2024-11-09 18:16] LABS: BASO # 0.0 10^3/uL (0.0-0.2); BASO % 0.2 % (0.0-1.0); EOS # 0.3 10^3/uL (0.0-0.5); EOS % 3.2 % (0.0-3.0); LYMPH # 3.1 10^3/uL (1.5-5.0); LYMPH % 36.6 % (24.0-44.0); MONO # 0.6 10^3/uL (0.0-0.8); MONO % 7.1 % (2.0-8.0); NEUTROPHILS # 4.4 10^3/uL (1.5-8.5); NEUTROPHILS % 51.7 % (36.0-66.0); PLATELET COUNT, AUTOMATED 294 10^3/uL (150-450); VITAMIN B12 LEVEL 864 PG/ML (211-911)
[2024-11-09 18:24] LABS: APPEARANCE, URINE HAZY (CLEAR); BACTERIA, URINE AUTO 1+ (NEGATIVE); BILIRUBIN, URINE AUTO NEGATIVE (NEGATIVE); BLOOD, URINE BLOOD NEGATIVE (NEGATIVE); CALCIUM OXALATE CRYSTALS MODERATE; GLUCOSE, URINE (UA) AUTO NEGATIVE (NEGATIVE); KETONE, URINE AUTO TRACE mg/dL (NEGATIVE); LEUKOCYTE ESTERASE, URINE AUTO NEGATIVE (NEGATIVE); MUCUS, URINE SMALL (NEGATIVE); NITRITE, URINE AUTO NEGATIVE (NEGATIVE); PROTEIN, URINE AUTO NEGATIVE (NEGATIVE); RBC, URINE AUTO 8 /HPF (0-3); SPECIFIC GRAVITY URINE AUTO 1.032 (1.002-1.035); SQUAMOUS EPITHELIAL CELL UR AU 1 /HPF (0-6); UROBILINOGEN, URINE AUTO 0.2 mg/dL (0.0-2.0); WBC, URINE AUTO 3 /HPF (0-3)
[2024-11-09 18:35] LABS: ERYTHROCYTE SEDIMENTATION RATE 41 mm/hr (0-30)
[2024-11-11 07:47] LABS: T P ELECTROPHORESIS SO 7.5 g/dL (6.1-8.1)
== END ==
LOC: M SFHCRHEU 15:35
PROVIDERS: ATTEND Internal Medicine
DX: R76.8 Other specified abnormal immunological findings in serum (principal); M25.40 Effusion, unspecified joint; B99.9 Unspecified infectious disease; M79.18 Myalgia, other site